=== PATIENT | female | born 1960 | race Two or more races ===

== ENCOUNTER 2017-10-18 15:44 | Emergency (ER) | payer OTHER ==
[~2017-10-18] VITALS: Ht 165.1 cm; Wt 78.9 kg
[2017-10-18 17:55] LABS: Basophils # (auto) 0 uL; Basophils % (auto) 0.2 % (0.0-2.0); Eosinophils # (auto) 0 uL; Eosinophils % (auto) 0.1 % (0.0-7.0); Hemoglobin 13.1 g/dL (12.2-16.2); Lymphocytes # (auto) 1.5 uL; Lymphocytes % (auto) 8.3 % (10.0-50.0); Mean Corpuscular Hemoglobin 30.4 pg (28.0-32.0); Mean Corpuscular Hgb Conc. 33.5 g/dL (32.0-36.0); Mean Corpuscular Volume 90.7 fL (80.0-100.0); Monocytes # (auto) 1.1 uL; Monocytes % (auto) 5.8 % (0.0-12.0); Neutrophils # (auto) 15.5 uL; Neutrophils % (auto) 85.6 % (37.0-80.0); Nucleated Red Blood Cells % 0.1 %; Platelet Count (auto) 306 10^3/uL (140-450); Red Cell Distribution Width 14.2 % (11.8-14.3); White Blood Cell 18.2 10^3/uL (4.4-10.8)
[2017-10-18 18:20] LABS: Albumin 2.9 g/dL (3.4-5.0); Bilirubin, Total 0.5 mg/dL (0.2-1.0); Calcium 8.9 mg/dL (8.5-10.1); Potassium 3.9 mmol/L (3.5-5.1); Total Protein 8.5 g/dL (6.4-8.2)
[2017-10-18 18:24] VITALS: BP 94/64
== END 2017-10-18 23:00 | disposition left against medical advice (07) ==
LOC: ER 15:48
DX: R50.9 Fever, unspecified (principal); R05 Cough; Z53.21 Procedure and treatment not carried out due to patient leaving prior to being seen by health care provider
CPT/HCPCS: 36415; 71045; 80053; 84484; 85025